=== PATIENT | male | born 1945 | race Caucasian/White ===

== ENCOUNTER → 2017-11-03 | Outpatient (CLI) | payer OTHER | LOC: FIMAGING 10:42 | PROVIDERS: ATTEND Internal Medicine | DX: R53.1 Weakness (principal); R29.898 Other symptoms and signs involving the musculoskeletal system; Z85.71 Personal history of Hodgkin lymphoma ==

== ENCOUNTER → 2018-01-16 | Outpatient (CLI) | payer OTHER ==
[~2018-01-16] MED LIST: GADOBUTROL 10 ML VIAL IVP ONE
== END ==
LOC: FIMAGING 11:46
PROVIDERS: ATTEND Psychiatry & Neurology Neurology
DX: M48.02 Spinal stenosis, cervical region (principal); M48.03 Spinal stenosis, cervicothoracic region; M47.812 Spondylosis without myelopathy or radiculopathy, cervical region; G95.89 Other specified diseases of spinal cord
CPT/HCPCS: 70553; 72156; A9585

== ENCOUNTER 2018-03-11 16:46 | Emergency (ER) | payer OTHER ==
--- NOTE | 2018-03-11 16:51 | EDPHY ---
H & P Time Seen by Provider: 03/11/18 16:51 HPI/ROS: HPI: This is a 72-year-old male who presents with Chief Complaint: Accidental fall and scalp laceration x2 Location: Scalp Quality: Laceration Duration: 1 hr prior to arrival Signs and Symptoms: + bleeding, no radiation, no numbness, no weakness, no tingling, no incontinence, no decreased range of motion, no swelling, no pain, no fever Timing: Acute Severity: Mild Context: Patient has a history of CVA approximately 1 and half years ago with a brain tumor that he has chosen not to have surgery for presents with raising his hand above his head to walk of the plans and losing his balance falling forward. He reports that he hit the top of his head on a wooden table. Denies LOC/head injury/neck pain/dizziness/nausea/vomiting/amnesia. He has chronic cervical stenosis but denies any exacerbation or pain or decreased range of motion. Patient has a slight dull aching frontal headache. Patient does not take any blood thinners. Unsure of last tetanus booster but politely declines today. Uses a cane some taking cyst to aid ambulation. 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 Modifying Factors: None Comment: ROS: see HPI Constitutional: No fever, no chills, no weight loss Eyes: No blurred vision Respiratory: No shortness of breath, no cough Cardiovascular: No chest pain Gastrointestinal: No nausea, no vomiting no diarrhea Genitourinary: No dysuria Extremities: No myalgias Neurologic: No weakness, no numbness Skin: No rashes Hematologic: No bruising, no bleeding MEDICAL/SURGICAL/SOCIAL HISTORY: Medical history: Hypothyroidism, CVA 1 and half years ago, brain tumor that patient chooses to not have surgery Surgical history: Denies Social history: . Retired. CONSTITUTIONAL: Elderly polite and cooperative white male, at bedside, awake and alert, no obvious distress HEENT: normocephalic, 1 inch vertical right occipital scalp laceration and 2.5 inch vertical left occipital scalp laceration. PERRL, EOMI. no globe entrapment , no raccoon eyes. no Su signs.Tympanic membranes clear. No tympanic membrane rupture. Nares patent; no septal hematoma. Oropharynx clear, no exudate and moist pink mucosa. No malocclusion. no dental trauma. Airway patent. No lymphadenopathy. NECK: supple, no midline tenderness, flexion 45 degrees, extension 45 degrees, right and left lateral flexion 45 degrees. No meningismus. Cardiovascular: Normal S1/S2, regular rate, regular rhythm, without murmur rub or gallop. PULMONARY/CHEST: Symmetrical and nontender. no crepitus. Clear to auscultation bilaterally. Good air movement. No accessory muscle usage. ABDOMEN: Soft, nondistended, nontender, no ecchymosis, no rebound, no guarding , no peritoneal signs, no masses or organomegaly. No CVAT. PELVIC: no pain with rocking; bilateral hips flexion 125 degrees, extension 30 degrees, with no pain internal rotation and no pain external rotation. BACK: No midline tenderness, no paraspinous spasm, deep tendon reflexes 2/2, no pain with straight leg raise EXTREMITIES: 2/2 pulses, no deformities, no clubbing, no cyanosis or edema. NEUROLOGICAL: no focal neuro deficits. GCS 15. SKIN: Warm and dry, no erythema. no rash. Good capillary refill. Source: Patient, Family () Exam Limitations: No limitations - Medical/Surgical History Hx Asthma: No Hx Chronic Respiratory Disease: No Hx Diabetes: No Hx Cardiac Disease: No Hx Renal Disease: No Hx Cirrhosis: No Hx Alcoholism: No Hx HIV/AIDS: No Hx Splenectomy or Spleen Trauma: No Other PMH: PT DENIES - Social History Smoking Status: Never smoked Constitutional: Initial Vital Signs Temperature (C) 36.7 C 03/11/18 16:52 Heart Rate 93 03/11/18 16:52 Respiratory Rate 18 03/11/18 16:52 Blood Pressure 151/99 H 03/11/18 16:52 O2 Sat (%) 96 03/11/18 16:52 O2 Delivery Mode Room Air Allergies/Adverse Reactions: GLUTEN,LACTOSE,EGGS Allergy (Uncoded 02/12/13 16:25) GI ISSUES-DISCOMFORT Home Medications: Medication Instructions Recorded Synthroid 03/11/18 Medical Decision Making Procedures: Procedure: Laceration repair. Verbal consent was obtained from the patient. The 1 inch, complex, deep laceration on the right occipital scalp was anesthetized in the usual fashion using 4 mL of 0.5% bupivacaine with epinephrine. The wound was irrigated, draped and explored to its base with a gloved finger. There were no deep structures involved. No tendon injury was identified. The wound was repaired with 2 layer closure of 5-0 Vicryl. Mastisol and Steri-Strips applied. The procedure was performed by myself. Procedure: Laceration repair. Verbal consent was obtained from the patient. The 2 inch, complex, deep laceration on the left occipital scalp was anesthetized in the usual fashion using 6 mL of 0.5% bupivacaine with epinephrine. The wound was irrigated, draped and explored to its base with a gloved finger. There were no deep structures involved. No tendon injury was identified. The wound was repaired with 2 layer closure of 5 0 Vicryl. Mastisol and Steri-Strips applied.. The procedure was performed by myself. ED Course/Re-evaluation: Vital signs stable upon arrival Patient has politely declined a tetanus booster. Offered head CT and cervical CT imaging due to age; patient and have politely declined as"I feel fine." Not on any blood thinners. Fall was witnessed and mechanical in nature. This patient was seen under the supervision of my secondary supervising physician. I evaluated care for this patient independently. Discussed this patient with Dr. Oliveira who did not see the patient. Differential Diagnosis: Head injury including but not limited to concussion, skull fracture, intraparenchymal contusion, subarachnoid, subdural and epidural hematoma. Departure - Departure Disposition: Home, Routine, Self-Care Clinical Impression: Closed head injury without loss of consciousness Qualifiers: Encounter type: initial encounter Qualified Code(s): S09.90XA - Unspecified injury of head, initial encounter Laceration of scalp without complication Qualifiers: Encounter type: initial encounter Qualified Code(s): S01.01XA - Laceration without foreign body of scalp, initial encounter Condition: Good Instructions: Concussion (ED), Head Injury (ED), Facial Laceration (ED), Care For Your Absorbable Stitches (ED) Additional Instructions: Keep the dressing dry for 48 hours. After 48 hours, you may wash the area with soap and water then pat dry. Allow the Steri-Strips to fall off on their own in approximately 5-7 days. Take Tylenol 650 mg every 4 hours and/or Ibuprofen 600 mg every 8 hours with food as needed for pain. This sutures used today to close her laceration are absorbable and will slowly dissolve over time on their own. Please observe concussion precautions. Return to the ER immediately if you have progressive headaches, neurologic deficits, gait abnormality, visual disturbance, slurred speech, or any other symptom that concerns you. Referrals: Erik Ibrahim MD [Primary Care Provider] - As per Instructions Betty Clayton MD [Medical Doctor] - As per Instructions
[2018-03-11 16:55] VITALS: BP 151/99
[2018-03-11] MEDS ORDERED: HYDROmorphONE/DILAUDID 2 MG/ML INJ IVP ONE (17:32)
== END 2018-03-11 17:53 | disposition home or self-care (01) ==
PROC: 0HQ0XZZ Repair Scalp Skin, External Approach (ICD-10-PCS; principal; 2018-03-11)
DX: S01.01XA Laceration without foreign body of scalp, initial encounter (principal); Z86.73 Personal history of transient ischemic attack (TIA), and cerebral infarction without residual deficits; W01.190A Fall on same level from slipping, tripping and stumbling with subsequent striking against furniture, initial encounter; Y99.8 Other external cause status; Y93.01 Activity, walking, marching and hiking

== ENCOUNTER 2018-04-14 21:12 | Inpatient (IN) | payer OTHER ==
--- NOTE | 2018-04-14 21:25 | EDPHY ---
H & P Stated Complaint: M1 Source: Patient, Police Exam Limitations: No limitations - Personal History Current Tetanus/Diphtheria Vaccine: Unsure Current Tetanus Diphtheria and Acellular Pertussis (TDAP): Unsure - Medical/Surgical History Hx Asthma: No Hx Chronic Respiratory Disease: No Hx Diabetes: No Hx Cardiac Disease: No Hx Renal Disease: No Hx Cirrhosis: No Hx Alcoholism: No Hx HIV/AIDS: No Hx Splenectomy or Spleen Trauma: No Other PMH: Anxiety depression PT DENIES - Social History Smoking Status: Never smoked Time Seen by Provider: 04/14/18 21:24 HPI/ROS: HPI: This is a 72-year-old male who presents with Chief Complaint: M1 hold, suicidal ideation Location: psych Quality: M1 hold, suicidal ideation Duration: Today Signs and Symptoms: no auditory hallucinations, no visual hallucinations, no suicidal ideation with a plan, no homicidal ideation, no paranoia Timing: Acute Severity: Moderate to severe Context: Patient is brought in by [facility] on M1 hold as he texted his that he was going to find a tree and hang himself. Patient reports that he recently had an MRI cervical spine in December that showed severe multilevel stenosis with central and foraminal spinal stenosis and nerve impingement. He followed up with Neurosurgery and reports that his options are very limited. He is concerned as he does not want to be a burden on any of his family members. He reports that he is in severe pain and feels like does not have anything to live for anymore. He does not have any previous psych history or suicide ideation or attempts. Modifying Factors: none Comment: ROS: see HPI Constitutional: No fever, no chills, no weight loss Eyes: No blurred vision Respiratory: No shortness of breath, no cough Cardiovascular: No chest pain Gastrointestinal: No nausea, no vomiting, no diarrhea Genitourinary: No dysuria Extremities: No myalgias Neurologic: No weakness, no numbness Skin: No rashes Hematologic: No bruising, no bleeding MEDICAL/SURGICAL/SOCIAL HISTORY: Medical history: Cervical central stenosis, depression Surgical history: Denies Social history: Family history noncontributory. CONSTITUTIONAL: Elderly white male, awake and alert, no obvious distress HEENT: Atraumatic and normocephalic, PERRL, EOMI. Nares patent; no rhinorrhea; no nasal mucosal edema. Tympanic membranes clear. Oropharynx clear, no exudate and moist pink mucosa. Airway patent. No lymphadenopathy. No meningismus. Cardiovascular: Normal S1/S2, tachycardia, regular rhythm, without murmur rub or gallop. PULMONARY/CHEST: Symmetrical and nontender. Clear to auscultation bilaterally. Good air movement. No accessory muscle usage. ABDOMEN: Soft, nondistended, nontender, no rebound, no guarding, no peritoneal signs, no masses or organomegaly. No CVAT. EXTREMITIES: 2/2 pulses, strength 5/5, no deformities, no clubbing, no cyanosis or edema. NEUROLOGICAL: no focal neuro deficits. GCS 15. PSYCH: Good eye contact, no flight of ideas, organized thought process, good insight and judgment, no auditory hallucinations, no visual hallucinations, no suicidal ideation with a plan, no homicidal ideation, no paranoia (Norma Link) Constitutional: Initial Vital Signs Temperature (C) 36.9 C 04/14/18 21:16 Heart Rate 116 H 04/14/18 21:16 Respiratory Rate 16 04/14/18 21:16 Blood Pressure 136/88 H 04/14/18 21:16 O2 Sat (%) 91 L 04/14/18 21:16 O2 Delivery Mode Room Air Allergies/Adverse Reactions: GLUTEN,LACTOSE,EGGS Allergy (Uncoded 02/12/13 16:25) GI ISSUES-DISCOMFORT Home Medications: Medication Instructions Recorded Synthroid 03/11/18 Medical Decision Making ED Course/Re-evaluation: Agree with M1 hold. Labs and UDS ordered patient is currently calm and cooperative no chemical interventions required. Suspect frustration is driven by unmanaged pain and limited options. TLC at bedside for mental health evaluation. 2215: labs and urine reviewed. grossly unremarkable. medically clear. 2305: TLC measurement department chief clerk speaking with psychiatrist regarding recommendations. End of Shift. Signed out to Dr. Wladen pending placement. This patient was seen under the supervision of my secondary supervising physician. I evaluated care for this patient independently. Discussed this patient with Dr. Walden who did not see the patient. (Norma Link) 0642AM: No acute events overnight patient has been resting. Patient on M1 hold and needs mental health placement. Suicidal. Signed over at 7:00 a.m.. ( Esteban Walden) 700: The patient is signed out to me at change of shift by Dr. Iram ISAAC was completed. The patient will be transferred for further care. ( Sharmin Doran) Differential Diagnosis: Differential diagnosis includes but is not limited to functional depression, situational depression, suicidal ideation, sade, psychosis, schizophrenia. (Norma Link) - Data Points Laboratory Results: Laboratory Results 04/14/18 21:40 04/14/18 21:40 04/14/18 04/14/18 04/14/18 21:40 21:40 21:40 WBC 9.29 10^3/uL 10^3/uL (3.80-9.50) RBC 4.93 10^6/uL 10^6/uL (4.40-6.38) Hgb 15.2 g/dL g/dL (13.7-17.5) Hct 45.0 % % (40.0-51.0) MCV 91.3 fL fL (81.5-99.8) MCH 30.8 pg pg (27.9-34.1) MCHC 33.8 g/dL g/dL (32.4-36.7) RDW 12.4 % % (11.5-15.2) Plt Count 258 10^3/uL 10^3/uL (150-400) MPV 10.7 fL fL (8.7-11.7) Neut % (Auto) 71.5 % % (39.3-74.2) Lymph % (Auto) 18.4 % % (15.0-45.0) Whitman % (Auto) 7.5 % % (4.5-13.0) Eos % (Auto) 1.9 % % (0.6-7.6) Baso % (Auto) 0.5 % % (0.3-1.7) Nucleat RBC Rel Count 0.0 % % (0.0-0.2) Absolute Neuts (auto) 6.63 10^3/uL H 10^3/uL (1.70-6.50) Absolute Lymphs (auto) 1.71 10^3/uL 10^3/uL (1.00-3.00) Absolute Monos (auto) 0.70 10^3/uL 10^3/uL (0.30-0.80) Absolute Eos (auto) 0.18 10^3/uL 10^3/uL (0.03-0.40) Absolute Basos (auto) 0.05 10^3/uL 10^3/uL (0.02-0.10) Absolute Nucleated RBC 0.00 10^3/uL 10^3/uL (0-0.01) Immature Gran % 0.2 % % (0.0-1.1) Immature Gran # 0.02 10^3/uL 10^3/uL (0.00-0.10) Sodium 141 mEq/L mEq/L (135-145) Potassium 4.4 mEq/L mEq/L (3.3-5.0) Chloride 104 mEq/L mEq/L (97-110) Carbon Dioxide 25 mEq/l mEq/l (22-31) Anion Gap 12 mEq/L mEq/L (8-16) BUN 21 mg/dL mg/dL (7-23) Creatinine 1.3 mg/dL mg/dL (0.7-1.3) Estimated GFR 54 Glucose 140 mg/dL H mg/dL (70-100) Calcium 10.0 mg/dL mg/dL (8.5-10.4) Urine Opiates Screen NEGATIVE (NEGATIVE) Urine Barbiturates NEGATIVE (NEGATIVE) Ur Phencyclidine Scrn NEGATIVE (NEGATIVE) Ur Amphetamine Screen NEGATIVE (NEGATIVE) U Benzodiazepines Scrn NEGATIVE (NEGATIVE) Urine Cocaine Screen NEGATIVE (NEGATIVE) U Marijuana (THC) Screen NEGATIVE (NEGATIVE) Ethyl Alcohol < 10 mg/dL mg/dL (0-10) Medications Given: Discontinued Medications Lorazepam (Ativan) 1 mg PO EDNOW ONE Stop: 04/15/18 01:07 Last Admin: 04/15/18 01:07 Dose: 0.5 mg Departure - Departure Disposition: Acute Care Hospital Not [facility] Clinical Impression: Stenosis of cervical spine, Verbalizes suicidal thoughts, Uncontrolled pain Condition: Good Referrals: NONE *PRIMARY CARE P,. [Primary Care Provider] - As per Instructions
[2018-04-14 21:58] LABS: PLATELET COUNT 258 10^3/uL (150-400)
[2018-04-15] MEDS ORDERED: LORazepam 1 MG TAB ONE (01:05)
[2018-04-15] MEDS ORDERED: LORazepam 1 MG TAB PO ONE (01:06)
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
--- NOTE | 2018-04-15 12:26 | ASMTTCLDSP ---
TLC Discharge Disposition Disposition: Answers: Admit Discharge Concerns/Recommendations: Notes: IN CONSULTATION WITH THE ED MD, JOLENE MCFARLANE MD AND THE ON-CALL PSYCHIATRIST, TIEN CULP MD BOTH CONCURRED THAT PT MEETS THE 27-65 CRITERIA REQUIRING IN-PT PSYCHIATRIC HOSPITALIZATION PT IS IN IMMINENT DANGER TO SELF DUE TO A MENTAL ILLNESS Was patient given the Answers: Yes Inpatient Behavioral Health Prohibited Belongings List while in the ED? For inpatient TIEN CULP MD admission, the following psychiatrist agreed to accept patient for admission to Behavioral Health ([facility]): Type of Hold: Answers: M1/72-hour Hold Hold initiated by: Answers: Police Date Signed: 04/15/2018 12:26 PM Electronically Signed By:Chelsea Castaneda
[2018-04-15] MEDS ORDERED: OLANZapine DISINTEGR 10 MG TAB PO PRN (12:52)
[2018-04-15] MEDS ORDERED: ACETAMINOPHEN 325 MG TAB PO PRN (12:52)
[2018-04-15] MEDS ORDERED: MAG HYDROX/AL HYDROX/SIMETH 30 ML UDCUP PO PRN (12:52)
[2018-04-15] MEDS ORDERED: MAGNESIUM HYDROXIDE 30 ML UDCUP PO PRN (12:52)
[2018-04-15] MEDS ORDERED: NICOTINE POLACRILEX 2 MG GUM B PRN (12:52)
[2018-04-15] MEDS ORDERED: MELATONIN 3 MG TAB PO PRN (12:57)
[2018-04-15] MEDS ORDERED: LEVOTHYROXINE 75 MCG TAB PO SCH (13:00)
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
--- NOTE | 2018-04-15 17:16 | PDMN ---
Medical Necessity Medical necessity: [facility]: B008- IP Major Depressive Disorder, Adult: Inpatient Care- 3 days - pt danger to self M1 hold,
[2018-04-15] MEDS: LORazepam 0.5 MG TAB PO PRN (22:08)
--- NOTE | 2018-04-16 08:13 | GCON ---
[f rep st] CONSULTATION INTERNAL MEDICINE CONSULT DATE OF CONSULTATION: 04/16/2018 REFERRING PHYSICIAN: Jacob Ron MD REASON FOR REFERRAL: Multiple medical issues, psychiatric evaluation. HISTORY OF PRESENT ILLNESS: The patient is a 72-year-old man with history significant for severe cer vical stenosis who was admitted with suicidal ideation. He recently was told that he had severe cerv ical stenosis requiring surgery. It was not clear if the surgery would help relieve the pain, but it would stop progression of the issue. He became quite depressed thinking he would live the rest of h is life in chronic pain and opted to hang himself. He went hiking looking for a tree. When he could not find a good tree, he texted his who called the police and ended up in the emergency departm ent. He does have multiple medical issues including multiple malignant melanoma and Hodgkin's lympho ma treated at [facility]. He has a history of depression and anxiety, neuropathy o f his left arm, BPH, and hypothyroidism. Currently, he is feeling okay. He has chronic dizziness, s ome left arm weakness, and slow speech which has been going on for about a year. He has been followe d closely in the outpatient setting by Dr. Ron. He, otherwise, has no significant complaints at thi s time. REVIEW OF SYSTEMS: A comprehensive review is done. GENERAL: No weight changes, fevers, chills, rec ent illnesses. HEENT: Slow speech but no vision or hearing changes. He has a mild headache and thi nks he needs caffeine. CARDIOVASCULAR: No chest pain, palpitations, lightheadedness. PULMONARY: N o shortness of breath. ABDOMEN: No abdominal complaints. No bowel changes except for some mild con stipation. : Nocturia x3-4 times. MUSCULOSKELETAL: No joint pains except for neck pain and back pain. SKIN: No new rashes. NEUROLOGIC: Mild numbness in his left arm. PSYCH: See above. ENDOC RINE: Stable. PAST MEDICAL HISTORY: 1. Malignant melanoma. 2. History of Hodgkin's lymphoma. 3. Anxiety and depression. 4. Peripheral neuropathy. 5. Rectal polyp. 6. BPH with nocturia. 7. Hypothyroidism. SOCIAL HISTORY: He is and lives with his . No alcohol. No tobacco. FAMILY HISTORY: Reviewed. MEDICATIONS: See med reconciliation form. ALLERGIES: No drug allergies. PHYSICAL EXAM: VITAL SIGNS: Afebrile, heart rate 80, blood pressure 114/69, respirations 14, 94% on room air. IN GENERAL: He is a healthy-appearing 72-year-old man. He is in no distress. He is teri rt and oriented. HEENT: Pupils are equal. Extraocular movements intact. Mucous membranes moist. Oropharynx clear. NECK: Supple. External . LYMPH NODES: No cervical or supraclavicular nodes. HEART: Regular rate and rhythm. LUNGS: Clear to auscultation. No wheeze or rhonchi. VAS CULAR: No carotid bruits. Normal distal pulses. ABDOMEN: Normal bowel sounds. No masses. No ten derness. MUSCULOSKELETAL: No joint deformities. SKIN: No rash. NEUROLOGIC: Moves all 4 extremit ies. Speech is fluent but slow. PSYCHIATRIC: The patient is appropriate. LABORATORY DATA: CBC within normal limits. Chemistry normal electrolytes. Glucose slightly elevate d. Recent TSH in December within normal limits. ASSESSMENT AND PLAN: This is a 72-year-old admitted for suicidal ideation and depression and medical ly stable. 1. History of lymphoma and melanoma followed at [facility] with no active disease. 2. Hypothyroidism on replacement with stable TSH. 3. Symptomatic benign prostatic hypertrophy. The patient is stable. 4. Depression, anxiety, suicidal ideation. Please see psychiatric H and P. Thank you for the consultation. No further recommendations at this time. /[id number]/MODL
[2018-04-16] MEDS: LEVOTHYROXINE 75 MCG TAB PO SCH (08:59)
--- NOTE | 2018-04-16 14:49 | ASMTBHMTP ---
Master Treatment Plan Master Treatment Plan Answers: Depressed Mood with for: Suicidal Ideation Date: 04/16/2018 Diagnosis on Admission: Major Depressive Disorder Expected length of stay: 3-5 Days Reason for admission: Notes: 72 year old male, , with one grown child, retired, masters level education, living with his in [place]. Pt. was brought in by [facility] Police on M1 Hold as he texted his that he was going to find a tree and hang himself. "I lived a full life, I'm 72 I;m not happy with my medical diagnosis, and the state of my body's condition." Patient's stated presenting problems: Notes: My called the police, I had decided to end my life. Patient's goals for treatment: Notes: Want to get back home. Get back to my life. Patient's strengths: Notes: Good listener, intuitive, sensitive, a good human being, and a good role model. Identify supports outside of hospital: Notes: Daughter and . Discharge criteria: Notes: Suicidal ideation will resolve and patient will have a plan to safely manage recurrent suicidal ideation. Initial disposition plan/considerations: Notes: Return home, finish selling home and move to [place]. Master Treatment Plan Required Signatures Psychiatrist signature: Answers: Jacob Ron MD: RN on-shift signature: Answers: RN: Patient signature: Answers: Patient: Date Signed: 04/16/2018 08:56 AM Electronically Signed By:Karolina Pérez
--- NOTE | 2018-04-16 15:14 | SOAPPROG ---
SOAP Progress Note Assessment/Plan: Assessment: 72 yo man with recently dx multi-level spinal stenosis with nerve impingement. He has multiple stressors at same time including wanting to sell house and move to [place] which he doesn't like and medical complications from spinal stenosis. He had SI with plan to hang himself on day of admission, but states he doesn't want to anymore. Plan: 04/16/18 15:08 1. Provided patient with handout on Prozac and Wellbutrin, but patient says he prefers to wait to take meds, and wants to start therapy first instead. He has a lot of stressors that make him feel depressed and hopeless. He feels he is a burden to his family and would be better off . His does not feel that way, and wants patient to get help. Patient not willing to consent for antidepressant meds at this time, but is willing to engage therapist. 2. strongly encouraging patient to see outpatient therapist, which he agrees to do. 3. MD took time to answer patient's questions about the r/b/se's of psychopharmacology and the potential benefit of talk therapy. MD recommended meds and therapy, but patient states he wants to "try therapy first" and then consider meds. He feels comfortable talking to his PCP about meds if/when necessary. 4. Patient completed safety plan on Tuesday. 5. CC to set up intake appt with local therapist. 6. Likely to d/c tomorrow when M1 hold expires. states she will be with patient for support and monitoring. Subjective: Met with patient, reviewed chart and d/w staff. Met with both patient and his during her visit to unit. Patient had lots of questions about drug information handout this MD gave him, on Wellbutrin and Prozac. MD answered patient's and 's questions about medications and therapy. Patient wanted to know how therapy worked, what he should expect and how to find a good therapist. Patient admits, "I have been depressed lately." He also acknowledges this is d/t large number of situations in his life that are adding stress. His wants to sell their house and move to [place] to be near her grandkids, but patient is less enthusiastic. He hasn't told his yet that he doesn't want to move. Instead he's been keeping his feelings to himself and says he doesn't have anything to look forward to. Then he received dx of spinal stenosis in 2017 and things have gone downhill ever since. He has stopped his exercise routine, spends less time outdoors and isn't eating or sleeping as well. MD told patient that meds might help him feel like doing some of these things again , but patient doesn't want to try meds "yet." He says he would like to start with therapy and then decide if meds are "right for me or not." Patient currently denies any SI/HI. Objective: Vital Signs Temp Pulse Resp BP Pulse Ox 36.8 C 80 14 114/69 94 04/16/18 06:00 04/16/18 06:00 04/16/18 06:00 04/16/18 06:00 04/16/18 06:00 MSE: Affect: Flat Mood: "Depressed" TP: Linear, goal-directed TC: Denies any SI/HI, no AH/VH Insight/Judgment: Improving - Time Spent With Patient Time Spent With Patient: 25" - Pending Discharge Pending Discharge Within 24 Hours: Yes Pending Discharge Within 48 Hours: No Pending Discharge Date: 04/17/18 (Probable d/c when [facility] expires) Pending Discharge Time: 11:00 ICD10 Worksheet Patient Problems: Problems Problem Status Onset Stenosis of cervical spine Acute Uncontrolled pain Acute Verbalizes suicidal thoughts Acute
[2018-04-16] MEDS: LORazepam 0.5 MG TAB PO PRN (22:07)
[2018-04-17 06:34] VITALS: BP 117/77
--- NOTE | 2018-04-17 09:18 | ASMTBHUR ---
Notes Note: Notes: Roma from [facility] called me and left a VM with additional UR information for this client (Crispin Enrique : 1945). Client was "approved 3, initial days, Roma was able to administratively approve two more covered days through Tuesday, April 19." Her contact information is: [phone]. [phone]. Thanks and I will add a note in the UR section on the census. Date Signed: 04/17/2018 09:17 AM Electronically Signed By:Paramjit Meng
[2018-04-17] MEDS: LEVOTHYROXINE 75 MCG TAB PO SCH (09:57)
--- NOTE | 2018-04-17 11:54 | ASMTBHDC ---
Notes Note: Notes: Pt. reports feeling "alright". Pt. stated he took Ativan to help him sleep and stated he feels rested today. Pt. stated he wants to speak with a therapist about phase of life issues and the aging process. Pt. stated he is eager to speak with a counselor. Pt. denied needing any other follow-up appointments. Pt. stated he is ready to discharge. Pt. stated his is "somewhat disabled" and wants to get back to her. Pt. stated he wants to live for both his and daughter, who was recently diagnosed with colon cancer. Pt. denied SI, HI, AVH and paranoia. Pt. stated him and his had planned to move to [place] in April, but now will probably move in May or June. Pt. presents as alert, calm, groomed, with a pleasant demeanor, good eye contact and hopeful about future. Date Signed: 04/17/2018 11:53 AM Electronically Signed By:Karolina Pérez
--- NOTE | 2018-04-17 14:28 | BDS ---
[f rep st] BEHAVIORAL HEALTH DISCHARGE SUMMARY REASON FOR ADMISSION: Pertinent information from the ED note dated 04/14/2018: The patient was brought in by the [facility] on an M1 hold as he texted his that he was going to find a tree and hang himself. Patient reported concern and did want to be a burden on his family members, reported that does not have anything to live for anymore. The patient does not have any previous psych history or suicide ideations or attempts. The patient was admitted involuntarily on an M1 hold due to being a danger to himself. The patient was admitted for safety, crisis stabilization, and medication evaluation. ADMITTING DIAGNOSIS: Verbalizes suicidal thoughts ADMISSION PHYSICAL EXAM: ED evaluation: The patient was calm and cooperative, with no chemical interventions required. Labs and urine were reviewed, grossly unremarkable. The patient was medically cleared for inpatient psychiatric hospitalization. ADMISSION LABORATORY DATA: CBC within normal limits, except for absolute neutrophils elevated at 6.63. Chemistry within normal limits, except for glucose that was elevated at 140. Toxicology was negative for all substances of abuse and negative for ethyl alcohol. HOSPITAL COURSE: The most prominent symptoms and behaviors while the patient was hospitalized here were the following: Upon admission, the patient was making suicidal statements/threats. Upon admission, patient was alert and oriented x4. His affect was euthymic. His demeanor was appropriate, made appropriate eye contact. His speech rate and volume were normal. His intellectual function appeared to be average based on his vocabulary, fund of knowledge, educational and work history. The patient did admit to feeling sad, helpless, hopeless, and his acknowledges that he has been sad ever since he received his diagnosis of spinal stenosis in December. The patient denied any symptoms of psychosis, and there were no signs or symptoms of sade present. There was no evidence of pressured speech or rapid thoughts. The patient denied having any thoughts, plans, or intent to hurt himself or anyone else and stated that thoughts of suicide come and go, but stated "I don't think about it all the time." His insight and judgment both seem to be impaired as evidenced by looking for a tree to hang himself on day of admission. Treatment modalities utilized were as follows: Milieu and group therapy. No psychotropic medications were started. The patient has improved considerably with no signs of psychiatric symptoms and no psychiatric symptoms expressed. The patient reports he has improved since admission. States to be in stable condition, feels safe to discharge and contracts for safety. The patient reports that he made a negative choice, made impulsive statements due to being under a lot of stress. The patient reports he could have made a better choice and dealt with the situations in a positive manner. The patient's response to treatment was good. There were no adverse or unexpected results of treatment. The patient was safe throughout his stay, engaged in treatment and groups, and was appropriate with staff. The treatment team consensus is that the patient is in stable condition and is safe to discharge today. CONDITION AT DISCHARGE: Patient is in stable condition and is no longer a danger to self or others, and is not gravely disabled due to mental illness. Patient is no longer in need of inpatient level of care, and can be safely and effectively treated within the community. The patients level of risk at time of discharge is low based on the risk assessment below following this discharge summary. MSE: The patient is casually dressed and with good hygiene, and looks stated age. Patient is sitting, posture is upright, and position is relaxed. Patient appears awake, alert, and responds appropriately and reasonably during interview. Patient is engaged, relates well to interviewer, and emotional facial expression is appropriate to situation and changes appropriately with topic. Patient is cooperative, makes comfortable eye contact, and movements are voluntary, deliberate, coordinated, and smooth and even with no inappropriate movements. Patient makes laryngeal sounds effortlessly and shares conversation appropriately; pace of conversation is appropriate, and stream of talking is fluent; articulation is clear and understandable; word choice is effortless and appropriate for education level; completes sentences, occasionally pausing to think; rate and volume are appropriate for interview and setting. Patient reports mood as euthymic. Patients affect is stable with full variable range, congruent with mood, and appropriate to speech and circumstances. Patient has linear and logical thinking, with no loose associations, tangential thought, thought blocking, concrete thinking, or any other signs of formal thought disorder. Patient denies suicidal and homicidal ideation, and denies hallucinations and delusions. Patient appears to be a reliable historian with sound judgement and good insight into current condition. Patient has no apparent dysfunction in recent or remote memory noted , and no evidence of gross cognitive dysfunction noted at any point during the interview. DISCHARGE DIAGNOSIS: Adjustment disorder with depressed mood DISCHARGE MEDICATIONS: The patient was discharged and is to continue his levothyroxine at 75 mcg p.o. daily at 10:00. This is a medication patient has been taking on an outpatient basis and reports he has prescription for this medication. DISPOSITION: Patient left hospital independently and voluntarily, and plans to return home to his . FOLLOW-UP: coordinator cardiopulmonary services reports the appropriate outpatient follow-up services have been established and outpatient appointments have been scheduled. The patient received written instructions with times and dates of outpatient follow-up appointments. coordinator cardiopulmonary services met with patient and this interviewer to discuss outpatient follow-up plan. Patient reports this experience has made him realize the importance of him seeking ongoing therapy/counseling. coordinator cardiopulmonary services reports and outpatient therapy intake appointment has been set-up for patient. The following follow-up recommendations were provided to the patient at discharge: Continue psychotropic medications as prescribed and attend appointments as scheduled. Report any side effects to a psychiatric outpatient provider, a primary care provider, or other health customer care team coach. Address any questions or problems concerning the psychotropic medications with a psychiatric outpatient provider, a primary care provider, or other health customer care team coach. Contact [facility] or [facility], or go to the nearest emergency room, if you are ever a danger to yourself/others, or unable to care for yourself. As soon as possible, establish a routine medication management treatment with a psychiatric provider, establish routine therapy appointments, and follow-up with a primary care provider. LEGAL COURSE: Patient as admitted on a M1 hold. Patient discharged today voluntarily and independently. ATTITUDE AT TIME OF DISCHARGE: The patient's attitude was positive at time of discharge, and the patient reports looking forward to discharging today. The patient reports he feels safe to discharge, is no longer a danger to himself or others, is in stable condition and contracts for safety. The patient states he will follow up with outpatient recommendations and referrals for counseling. The patient reports internal protective factors as the coping skills he has learned while hospitalized here, and he plans to continue to practice these coping skills after discharge. The patient reports external protective factors as his and daughter. The patient reports he needs to be around to take care of his and states that his is both visually and auditorily impaired and states that he is a big support for his . The patient also reports he needs to be around to be supportive to his daughter, who is currently undergoing colon cancer treatment. The patient describes looking forward to being at home with his after discharging today. The patient describes future plans as moving to [place] this late summer or early fall. The patient reports his family looks forward to him discharging today. The patient's reports the patient has a safe discharge plan and is safe to discharge today. The patient's agrees for the patient to discharge today and states the patient has reported to her that he wants to be home with her, and his reports that patient has stated that he now realizes he needs to see a counselor, and he plans on doing so. The patient's also reports that her is a good emotional support for his daughter, who is currently undergoing cancer treatment. The patient's reports that she loves him dearly and looks forward to him returning home today. PENDING LABS AND STUDIES: No pending labs or studies at time of discharge. ADVANCE DIRECTIVES: No advance directives on file, and patient was full code during hospitalization. SUICIDE ASSESSMENT FIVE-STEP EVALUATION AND TRIAGE Patient describes the following: (1) RISK FACTORS: (a) Suicidal behavior: no history of attempts or ideation (b) Current/past psychiatric disorders: Adjustment Disorder with Depressed Mood (c) House symptoms: mild depressed mood (d) Family history: no family history of suicide or suicide attempts (e) Precipitants/Stressors/Interpersonal: none (f) Change in treatment: discharge from psychiatric hospital (g) Access to firearms: none (2) PROTECTIVE FACTORS: (a) Internal: coping skills (b) External: and daughter (3) SUICIDAL INQUIRY: (a) Ideation: none; reports last time had SI was prior to his admission (b) Plan: none (c) Behaviors: none (d) Intent: none (4) RISK LEVEL: Low: modifiable risk factors, strong protective factors; no SI or self-injurious ideation. Intervention: treatment plan to reduce symptoms: therapy, provided emergency/crisis numbers, follow-up plan for outpatient services; supportive . /[id number]/[email or web address] [email or web address]
== END 2018-04-17 12:53 | disposition home or self-care (01) | DRG 881 ==
LOC: BBEH 04-15 10:50
PROVIDERS: ADMIT Psychiatry & Neurology Psychiatry; ATTEND Psychiatry & Neurology Psychiatry
DX: F43.21 Adjustment disorder with depressed mood (principal); M48.02 Spinal stenosis, cervical region; N40.1 Benign prostatic hyperplasia with lower urinary tract symptoms; R35.1 Nocturia; E03.9 Hypothyroidism, unspecified; C81.90 Hodgkin lymphoma, unspecified, unspecified site; G62.9 Polyneuropathy, unspecified
CPT/HCPCS: 80305; G0480